=== PATIENT | male | born 1955 | race Caucasian/White ===

== ENCOUNTER 2022-10-01 12:04 | Observation (INO) | payer MEDICARE, OTHER ==
[2022-10-01] VITALS (14 sets, daily range): BP systolic 131–186; BP diastolic 83–137
[~2022-10-01] VITALS: Ht 167.6 cm; Wt 74.0 kg
--- NOTE | 2022-10-01 12:10 | NUR ---
PATIENT REPORT TO PRIMARY NURSE ALEXX CUADRA
--- NOTE | 2022-10-01 12:10 | NUR ---
PATIENT TO ROOM 11
[2022-10-01] MEDS ORDERED: OMEPRAZOLE DR20 MG PO (12:32)
[2022-10-01 12:46] LABS: BASO% 1.1 % (0-3); EOS% 0.8 % (0-8); HEMATOCRIT 46.2 % (39.0-50.0); HEMOGLOBIN 16.6 g/dl (14.0-18.0); IMMATURE GRANULOCYTES 0.1 % (0.0-5.0); LYMPH% 30.3 % (15-41); MEAN CELL VOLUME 89.2 fL CALC (80.0-100.0); MEAN CORPUSCULAR HGB CONC 35.9 g/dL CAL (32.0-36.0); MONO% 7.8 % (2-13); NEUT# 4.46 thou/uL (1.82-7.42); NEUT% 59.9 % (42-76); RED BLOOD COUNT 5.18 mill/uL (4.70-6.10); RED CELL DISTRI WIDTH 11.7 % (11.5-15.5)
[2022-10-01 12:58] LABS: ALBUMIN 4.9 g/dL (3.2-5.0); ALKALINE PHOSPHATASE 80 u/l (38-126); ANION GAP 17 (6-22 (CALC)); BILIRUBIN, TOTAL 0.8 mg/dL (0.2-1.3); BUN 25 mg/dL (8-23); BUN/CREATININE RATIO 29 (12-20 (CALC)); CARBON DIOXIDE 21 mmol/l (22-30); CHLORIDE 102 mmol/l (95-108); CREATININE 0.9 mg/dL (0.7-1.3); GFR FOR AFR.AMER. > 60 ML/MIN (>=60 (CALC)); GFR OTHER RACES > 60 ML/MIN (>=60 (CALC)); POTASSIUM 3.8 mmol/l (3.5-5.1); SGOT/AST 33 u/l (19-48); SODIUM 136 mmol/l (137-146); TOTAL PROTEIN 7.8 g/dL (6.3-8.2)
--- NOTE | 2022-10-01 17:35 | NUR ---
PATIENT TO 270
[2022-10-01] MEDS ORDERED: HYDROCHLOROTH12.5 MG PO (18:00)
--- NOTE | 2022-10-01 22:00 | NUR ---
PATIENT AMB IN THE ROOM-STEADY ON HIS FEET. AWAKE ALERT AND ORIENTEDX3. PATIENT WITH NO COMPLAINTS AT THIS TIME. ASKING FOR SLEEPING PILL-MEDICATED WITH SONATA 5MG PO FOR SLEEP. PATIENT WITH TELE MONITOR IN PLACE-LAST READING WAS ST-103. SALINE LOCK TO LEFT AC INTACT AND HEALTHY WITH GOOD BLOOD RETURN. LUNGS ARE CLEAR. ABD IS SOFT WITH ACTIVE BS. NO PERIPHERAL EDEMA NOTED. AND PULSES ARE PALPABLE. SPEECH IS CLEAR. NO FACIAL DROOP. HAND GRASP ARE EQUAL. NO DRIFT AT THIS TIME. DEN IES ANY DIFFICULTY WITH URINATION. SAFETY PRECAUTIONS REINFORCED. CALL LIGHT IN REACH. WILL CONT TO MONITOR.
[2022-10-02 00:27] VITALS: BP 91/55
--- NOTE | 2022-10-02 00:30 | NUR ---
PATIENT RESTING IN BED WITH EYES CLOSED. RESPS ARE EVEN AND UNLABORED. TELE MONITOR IN PLACE. TELE MONITOR IN PLACE WITH LAST READING SR-75. MN TROP IS NEG AT 0.012. CALL LIGHT IN REACH. WILL CONT TO MONITOR.
[2022-10-02 04:01] VITALS: BP 100/54
[2022-10-02 06:32] LABS: CHOLESTEROL HDL RATIO 6.3 (<4.4 (CALC)); MAGNESIUM 1.8 mg/dL (1.6-2.3)
[2022-10-02 06:39] VITALS: BP 102/65
--- NOTE | 2022-10-02 07:31 | NUR ---
SHFIT CHANGE REPORT, PT AWAKE ALERT AND ORIENTED RESTING IN BED, NO C/O DISCOMFORT OR CONCERNS, TELE MONITOR IN PLACE, CALL [place] IN REACH AND BED LOCKED IN LOWEST POSITION.
--- NOTE | 2022-10-02 09:00 | NUR ---
INFORMED OF MRI PROCEDURE, STATES UNDRESTANDING, BEING TRANSPORTED OFF UNIT AT THIS TIME VIA W/C TO MRI.
--- NOTE | 2022-10-02 11:27 | NUR ---
CALLED REDD THOMAS (PATIENT FINANCIAL ADV[employer]ATE) IN REFERENCE TO A CONSULT FOR THIS PATIENT. REDD STATED THAT SHE WOULD SEE THE PATIENT LATER TODAY OR POSSIBLY TOMORROW.
--- NOTE | 2022-10-02 11:45 | NUR ---
JUST RETURNED TO UNIT FROM AM PROCEDURES.
[2022-10-02 15:58] VITALS: BP 115/73
[2022-10-02] MEDS ORDERED: ASPIRIN REGULA325 M1 PO (16:14)
--- NOTE | 2022-10-02 16:51 | NUR ---
Discharge instructions given. Patient verbalizes understanding of same. Discharged in good condition via Wheelchair to Home with *Other. All belongings sent with pt.
== END 2022-10-02 16:48 | disposition home or self-care (01) ==
LOC: ED 12:04 → ED-I 14:50 → ED 16:52 → MS2 16:53
PROVIDERS: Emergency Medicine; ADMIT Internal Medicine; ATTEND Internal Medicine
DX: R20.2 Paresthesia of skin (principal); R20.0 Anesthesia of skin; I10 Essential (primary) hypertension; K21.9 Gastro-esophageal reflux disease without esophagitis
CPT/HCPCS: J1650